=== PATIENT | female | born 1960 | race African-American/Black ===

== ENCOUNTER 2019-09-14 12:38 | Emergency (ER) | payer OTHER ==
[~2019-09-14] VITALS: Ht 170.2 cm; Wt 83.0 kg
--- NOTE | 2019-09-14 12:44 | NUR ---
"BIBRA1, FROM [facility], C/O ABD PAIN x 3 DAYS, -N/V, DIARRHEA Hx PANCREATITIS"PT AAOX4, -SOB, NAD NOTED, VSS, PENDING MD SOOD
[2019-09-14] MEDS ORDERED: LORAZEPAM INJ 2 MG/ML VIAL ONE ×3 (13:48→23:05)
[2019-09-14] MEDS ORDERED: ONDANSETRON HCL/PF 4 MG/2 ML VIAL ONE (13:48)
[2019-09-14 13:53] LABS: APPEARANCE,URINE Clear (CLEAR); BILIRUBIN,URINE Negative (NEGATIVE); BLOOD, URINE Moderate Ery/uL (NEGATIVE); COLOR,URINE Yellow (YELLOW); KETONES,URINE Negative (NEGATIVE); LEUKOCYTE ESTERASE ,URINE Negative (NEGATIVE); NITRITE, URINE Negative (NEGATIVE); PH,URINE 5.5 (5.0-8.0); PROTEIN,URINE >=300 mg/dl (NEGATIVE); UGLUCOSE Negative (NEGATIVE); UROBILINOGEN,URINE 0.2 EU/dL (0.2)
[2019-09-14 13:56] LABS: BASOPHILS % (AUTO) 0.6 % (0.0-2.0); HEMATOCRIT 40 % (33-45); HEMOGLOBIN 13.1 g/dL (11.5-14.8); LYMPHOCYTES # (AUTO) 1.2 /CMM (0.8-4.8); LYMPHOCYTES % (AUTO) 18.4 % (20.0-44.0); MEAN CORPUSCULAR HGB CONC 33 g/dl (31.0-36.0); MEAN CORPUSCULAR VOLUME 88 fL (82-100); MONOCYTES # (AUTO) 0.3 /CMM (0.1-1.30); MONOCYTES % (AUTO) 4.8 % (2.0-12.0); NEUTROPHILS # (AUTO) 5.2 /CMM (1.8-8.9); NEUTROPHILS % (AUTO) 76.2 % (43.0-81.0); PLATELET COUNT (AUTO) 215 /CMM (150-450); RED BLOOD CELL COUNT(AUTO) 4.53 MIL/uL (4.0-5.2); WHITE BLOOD COUNT (AUTO) 6.8 K/uL (4.3-11.0)
[2019-09-14] MEDS ORDERED: ONDANSETRON HCL/PF 4 MG/2 ML VIAL IVP ONE (14:00)
[2019-09-14] MEDS ORDERED: IV NS 0.9% 1,000 ML BAG IV ONE (14:00)
[2019-09-14] MEDS ORDERED: LORAZEPAM INJ 2 MG/ML VIAL IV ONE ×3 (14:00→23:30)
[2019-09-14 14:08] LABS: CALCIUM, SERUM 9.3 mg/dL (8.5-10.1); CARBON DIOXIDE 32 mmol/L (21-32); CHLORIDE 100 mmol/L (98-107); CREATININE 1.1 mg/dL (0.6-1.3); GLUCOSE 112 mg/dL (74-106); POTASSIUM 3.1 mmol/L (3.5-5.1); SODIUM SERUM 139 mmol/L (136-145); UREA NITROGEN, BLOOD 13 mg/dL (7-18)
[2019-09-14 14:13] LABS: BACTERIA,URINE Few /HPF (None Seen); SQUAMOUS EPITHELIAL CELL,UR Few /HPF (None Seen)
[2019-09-14 14:14] LABS: ALANINE AMINOTRANSFERASE 16 U/L (12-78); ALBUMIN 4.4 g/dL (3.4-5.0); ALCOHOL, BLOOD < 3 mg/dL (0-0); ALKALINE PHOSPHATASE 82 U/L (46-116); ASPARTATE AMINOTRANSFERASE 19 U/L (15-37); BILIRUBIN,DIRECT 0.1 mg/dL (0.0-0.2); BILIRUBIN,TOTAL 0.3 mg/dL (0.2-1.0); LIPASE 146 U/L (73-393); TOTAL PROTEIN, SERUM 9.4 g/dL (6.4-8.2)
[2019-09-14 14:17] LABS: ACETAMINOPHEN 0 ug/ml (10-30)
[2019-09-14] MEDS ORDERED: OLANZAPINE 10 MG VIAL IM ONE ×2 (15:00→15:06)
--- NOTE | 2019-09-14 15:12 | NUR ---
Patient is resting comfortably in bed with eyes closed. Easily aroused. VSS
--- NOTE | 2019-09-14 17:30 | NUR ---
Patient is resting comfortably in bed with eyes closed. Easily aroused. VSS
[2019-09-14] MEDS ORDERED: hydrALAZINE HCL IV 20 MG VIAL IV ONE ×2 (18:30→21:00)
[2019-09-14] MEDS ORDERED: hydrALAZINE HCL IV 20 MG VIAL ONE ×2 (18:34→21:17)
--- NOTE | 2019-09-15 01:40 | NUR ---
PT WAKES UP INTERMITTENTLY AND YELLS INCOHERENTLY. NEEDS TO BE REORIENTED TO SURROUNDINGS. NOTED HYPERTENSION. AWARE
[2019-09-15] MEDS ORDERED: hydrALAZINE HCL IV 20 MG VIAL ONE (01:44)
[2019-09-15] MEDS ORDERED: LORAZEPAM INJ 2 MG/ML VIAL ONE (01:45)
[2019-09-15] MEDS ORDERED: LORAZEPAM INJ 2 MG/ML VIAL IV ONE (02:00)
[2019-09-15] MEDS ORDERED: hydrALAZINE HCL IV 20 MG VIAL IV ONE (02:00)
--- NOTE | 2019-09-15 05:15 | NUR ---
PT RESTING COMFORTABLY IN BED. PER SITTER, PT STILL INTERMITTENTLY YELLS IN SLEEP AND APPEARS CONFUSED, NEEDS CONSTANT REORIENTATION TO SURROUNDINGS. NOTED HYPERTENSION. ER MD AWARE. SITTER STILL AT BEDSIDE. WILL CONTINUE TO MONITOR
--- NOTE | 2019-09-15 05:30 | NUR ---
PT BROUGHT BY RADIOLOGY TO CT
--- NOTE | 2019-09-15 08:42 | NUR ---
PATIENT RESTING INSIDE ROOM. NO ACUTE DISTRESS. PATIENT SLEEPING, AROUSABLE THROUGH VERBAL AND TACTILE STIMULI. REORIENTED TO UNIT AND SITUATION. SON AT BEDSIDE. WILL CONTINUE TO MONITOR
--- NOTE | 2019-09-15 09:11 | NUR ---
VS TAKEN WITH BP OF 191/98. DR MARCOS MADE AWARE
--- NOTE | 2019-09-15 12:09 | NUR ---
PATIENT A/OX3, AMBULATES IN THE HALLWAY WITH STEADY GAIT. SUPERVISION ONLY. ORDERED FOOD TRAY. BP 180/97
--- NOTE | 2019-09-15 12:15 | NUR ---
MARITZA BHARDWAJ AT BEDSIDE FOR EVAL
[2019-09-15 12:45] VITALS: BP 169/102
--- NOTE | 2019-09-15 12:45 | NUR ---
Social service consult requested by Dr. Wetzel for possible homelessness. Pt. is a 59 year old female with endorsed psychiatric history and history of hypertension, unsure of her baseline medications, who was brought to [facility] yesterday for abdominal pain. Pt. became belligerent during her earlier ER course and required restraints as well as Zyprexa in the ER. SW met with the pt. bedside. Pt. is alert and oriented x 4. Pt. appears disheveled. Pt's mood is congruent. Pt. denies homelessness and states she resides at [address] in [facility]. Pt. has a history of Schizophrenia and Bipolar Disorder. Pt. sees a psychiatrist at [facility] in [facility]. Pt. is unable to state what psychotropic medications she is taking, but states she does take medication. Pt. denies suicidal and homicidal ideations and visual/auditory hallucinations at this time. Pt. uses Marijuana but denies any other drug use. Pt. denies alcohol use. Pt toxicology was positive for cocaine. When SW informed pt. she denies using cocaine and appeared surprised. Pt. was provided with a TAP for transport to location of choice. Homeless patient waiver was signed by the pt. No other social service needs are requested at this time. SW is available, if needed.
== END 2019-09-15 13:01 | disposition home or self-care (01) ==
LOC: ER 12:40
DX: F23 Brief psychotic disorder (principal); F19.10 Other psychoactive substance abuse, uncomplicated; R10.84 Generalized abdominal pain; R41.82 Altered mental status, unspecified; I10 Essential (primary) hypertension; J45.909 Unspecified asthma, uncomplicated; F41.9 Anxiety disorder, unspecified; F31.9 Bipolar disorder, unspecified; F10.10 Alcohol abuse, uncomplicated; F12.10 Cannabis abuse, uncomplicated; F14.10 Cocaine abuse, uncomplicated; Y90.0 Blood alcohol level of less than 20 mg/100 ml; Z59.0 Homelessness
CPT/HCPCS: 36415; 70450; 74176; 80048; 80076; 80305; 80307; 80329; 81001; 83690; 84484; 84703; 85025; 93005; 96374; 96375; 96376 ×2; 99284; G0480; J0360 ×3; J2060 ×4; J2405; J3490; J7030; 81000-TC

== ENCOUNTER 2019-09-16 04:48 | Emergency (ER) | payer MEDICAID, OTHER ==
[~2019-09-16] VITALS: Ht 170.2 cm; Wt 73.5 kg
--- NOTE | 2019-09-16 04:48 | NUR ---
PT BIB EMS C/O ABDOMINAL PAIN SINCE 99. PT IS AAOX4, NOT IN RESPIRATORY DISTRESS, HOOKED TO MONITOR, KEPT RESTED AND COMFORTABLE, WILL CONTINUE TO MONITOR.
--- NOTE | 2019-09-16 05:03 | NUR ---
AT BEDSIDE FOR EVAL.
[2019-09-16] MEDS ORDERED: LORAZEPAM INJ 2 MG/ML VIAL ONE (05:10)
[2019-09-16] MEDS ORDERED: LORAZEPAM INJ 2 MG/ML VIAL IM ONE (05:30)
[2019-09-16 05:52] LABS: BASOPHILS % (AUTO) 0.2 % (0.0-2.0); HEMATOCRIT 44 % (33-45); HEMOGLOBIN 14.6 g/dL (11.5-14.8); LYMPHOCYTES # (AUTO) 1.1 /CMM (0.8-4.8); LYMPHOCYTES % (AUTO) 17.7 % (20.0-44.0); MEAN CORPUSCULAR HGB CONC 33 g/dl (31.0-36.0); MEAN CORPUSCULAR VOLUME 86 fL (82-100); MONOCYTES # (AUTO) 0.5 /CMM (0.1-1.30); MONOCYTES % (AUTO) 8.4 % (2.0-12.0); NEUTROPHILS # (AUTO) 4.8 /CMM (1.8-8.9); NEUTROPHILS % (AUTO) 73.7 % (43.0-81.0); PLATELET COUNT (AUTO) 205 /CMM (150-450); RED BLOOD CELL COUNT(AUTO) 5.06 MIL/uL (4.0-5.2); WHITE BLOOD COUNT (AUTO) 6.5 K/uL (4.3-11.0)
[2019-09-16 06:00] LABS: CALCIUM, SERUM 9.7 mg/dL (8.5-10.1); CARBON DIOXIDE 27 mmol/L (21-32); CHLORIDE 99 mmol/L (98-107); CREATININE 2.1 mg/dL (0.6-1.3); GLUCOSE 120 mg/dL (74-106); SODIUM SERUM 137 mmol/L (136-145); UREA NITROGEN, BLOOD 40 mg/dL (7-18)
[2019-09-16 06:06] LABS: ACETAMINOPHEN 0 ug/ml (10-30); ALANINE AMINOTRANSFERASE 15 U/L (12-78); ALBUMIN 4.5 g/dL (3.4-5.0); ALCOHOL, BLOOD < 3 mg/dL (0-0); ALKALINE PHOSPHATASE 83 U/L (46-116); ASPARTATE AMINOTRANSFERASE 24 U/L (15-37); BILIRUBIN,DIRECT 0.2 mg/dL (0.0-0.2); BILIRUBIN,TOTAL 0.8 mg/dL (0.2-1.0); SALICYLATE 6.2 mg/dL (2.8-20.0); TOTAL PROTEIN, SERUM 9.2 g/dL (6.4-8.2)
--- NOTE | 2019-09-16 06:17 | NUR ---
URINE SPECIMEN COLLECTED AND SENT TO LAB.
--- NOTE | 2019-09-16 06:40 | NUR ---
PT ASLEEP ON BED, EASILY AROUSABLE, NOT IN RESPIRATORY DISTRESS, WILL CONTINUE TO MONITOR.
[2019-09-16 07:36] LABS: APPEARANCE,URINE CLOUDY (CLEAR); BILIRUBIN,URINE NEGATIVE (NEGATIVE); BLOOD, URINE MODERATE Ery/uL (NEGATIVE); COLOR,URINE YELLOW (YELLOW); KETONES,URINE NEGATIVE (NEGATIVE); LEUKOCYTE ESTERASE ,URINE TRACE (NEGATIVE); NITRITE, URINE NEGATIVE (NEGATIVE); PH,URINE 5.5 (5.0-8.0); PROTEIN,URINE 100 mg/dl (NEGATIVE); UGLUCOSE NEGATIVE (NEGATIVE); UROBILINOGEN,URINE 0.2 EU/dL (0.2)
--- NOTE | 2019-09-16 08:05 | NUR ---
SW left a message for pt's son Robby requesting a call back.
[2019-09-16] MEDS ORDERED: POTASSIUM CHLORIDE 20 MEQ TAB.PRT.SR PO ONE ×2 (08:30→08:34)
[2019-09-16 08:40] LABS: BACTERIA,URINE Many /HPF (None Seen); SQUAMOUS EPITHELIAL CELL,UR Few /HPF (None Seen)
--- NOTE | 2019-09-16 08:47 | NUR ---
ELEVATED BLOOD PRESSURE AT 193/103MMHG, MADE AWARE
[2019-09-16] MEDS ORDERED: AMLODIPINE BESYLATE 5 MG TABLET ONE (08:51)
[2019-09-16] MEDS ORDERED: AMLODIPINE BESYLATE 5 MG TABLET PO ONE (09:00)
--- NOTE | 2019-09-16 09:32 | NUR ---
BREAKFAST TRAY PROVIDED, PATIENT TOLERATING PO WELL
[2019-09-16] MEDS ORDERED: LORAZEPAM 1 MG TABLET PO ONE (10:00)
[2019-09-16] MEDS ORDERED: TRAMADOL HCL 50 MG TABLET PO ONE (10:00)
[2019-09-16] MEDS ORDERED: LORAZEPAM 1 MG TABLET ONE (10:17)
[2019-09-16] MEDS ORDERED: TRAMADOL HCL 50 MG TABLET ONE (10:17)
--- NOTE | 2019-09-16 10:18 | NUR ---
Social service consult requested by Dr. Sanderson for psychiatric evaluation. Pt. is a 59 year old female who was brought by rescue ambulance complaining of abdominal pain. Pt. was discharged yesterday from the ED after being in the ED for 20 + hours. DION and community services officer sign shop supervisor Alley Keys met with the pt. bedside. SW is familiar with the pt. from yesterday. Pt. is alert and oriented x 4. Pt. appears dirty and disheveled. Pt. was lying on her stomach with her legs hanging off the bed. Pt. states after being discharged yesterday she went to her son Herlinda tong. Pt. has extensive psychiatric history and has a diagnosis of Schizophrenia and Bipolar Disorder. Pt. sees a psychiatrist at [facility] in [facility]. Pt. is unable to state exactly what psychotropic medications she is taking, but does remember taking Zyprexa. Pt. stated, "please do not give me haldol, my tongue swells up." Pt. denies suicidal and homicidal ideations and visual/auditory hallucinations at this time. Pt. toxicology shows positive for Marijuana and cocaine again. Pt. states she would like to be discharged when medically cleared to [facility] located at [address] [place] [address] in [facility]. DION to see the pt. again prior to discharge.
[2019-09-16] MEDS ORDERED: CLONIDINE HCL 0.1 MG TABLET ONE (10:32)
--- NOTE | 2019-09-16 10:32 | NUR ---
LEFT VM TO SON AMARA KAYLEEN [phone].
--- NOTE | 2019-09-16 10:33 | NUR ---
BP AT 197/110MMHG, MADE MD AWARE, RECEIVED VERBAL ORDER OF CLONIDINE 0.2MG PO. CARRIED OUT
[2019-09-16] MEDS ORDERED: CLONIDINE HCL 0.1 MG TABLET PO ONE (11:00)
--- NOTE | 2019-09-16 11:04 | NUR ---
MARIANGEL BEYER AT BEDSIDE TO CORPORATE RESPONSIBILITY OFFICER PATIENT.
[2019-09-16 11:25] VITALS: BP 180/98
--- NOTE | 2019-09-16 11:25 | NUR ---
Patient discharged to home with son in stable condition. Written and verbal after care instructions given. Patient verbalizes understanding of instruction.
== END 2019-09-16 11:25 | disposition home or self-care (01) ==
LOC: ER 04:48
DX: F41.9 Anxiety disorder, unspecified (principal); R10.30 Lower abdominal pain, unspecified; F12.10 Cannabis abuse, uncomplicated; I10 Essential (primary) hypertension; R45.1 Restlessness and agitation; F20.9 Schizophrenia, unspecified; F31.9 Bipolar disorder, unspecified; J45.909 Unspecified asthma, uncomplicated; F10.10 Alcohol abuse, uncomplicated; Y90.0 Blood alcohol level of less than 20 mg/100 ml; Z91.19 Patient's noncompliance with other medical treatment and regimen
CPT/HCPCS: 36415; 80048; 80076; 80305; 80307; 80329; 81001; 85025; 87086; 96372; 99284; G0480; J2060; 81000-TC